=== PATIENT | male | born 1935 | race Caucasian/White ===

== ENCOUNTER → 2021-04-16 | Emergency (ER) | payer MEDICARE, OTHER ==
[~2021-04-16] VITALS: Ht 182.9 cm; Wt 81.6 kg
== END | disposition home or self-care (01) ==
LOC: ER 11:30
DX: R31.9 Hematuria, unspecified (principal); I10 Essential (primary) hypertension; M10.9 Gout, unspecified; Z85.828 Personal history of other malignant neoplasm of skin
CPT/HCPCS: 99283